=== PATIENT | female | born 1970 | race Caucasian/White ===

== ENCOUNTER → 2017-07-06 | Outpatient (CLI) | payer OTHER | LOC: BRMIMAGING 09:54 | PROVIDERS: ATTEND Internal Medicine | DX: M79.641 Pain in right hand (principal); M79.642 Pain in left hand; M25.562 Pain in left knee | CPT/HCPCS: 73130-PO; 73562-PO ==

== ENCOUNTER → 2017-08-31 | Outpatient (CLI) | payer OTHER | LOC: BRMIMAGING 11:26 | PROVIDERS: ATTEND Family Medicine | DX: Z12.31 Encounter for screening mammogram for malignant neoplasm of breast (principal) | CPT/HCPCS: G0202 ==